=== PATIENT | female | born 1945 | race Caucasian/White ===

== ENCOUNTER 2020-01-05 01:15 | Outpatient (CLI) | payer MEDICARE, SELFPAY ==
[2020-01-05 20:03] LABS: SARS-CoV-2 RNA PCR Negative
== END 2020-01-05 01:16 | disposition home or self-care (01) ==
LOC: ANHCOVIDDT 01:16
PROVIDERS: PCP Family Medicine; Visit Provider Obstetrics & Gynecology
DX: Z01.812 Encounter for preprocedural laboratory examination (principal); Z11.59 Encounter for screening for other viral diseases
CPT/HCPCS: 87635; 93005; C9803; U0003

== ENCOUNTER 2020-01-05 09:23 | Outpatient (CLI) | payer MEDICARE, SELFPAY ==
--- NOTE | 2020-01-05 13:30 | ECG_ITS ---
Measurements Intervals [place] Rate: 74 P: 34 [place]: 142 QRS: -1 QRSD: 85 T: 29 QT: 359 QTc: 400 Interpretive Statements SINUS RHYTHM INFERIOR INFARCT, AGE INDETERMINATE BORDERLINE ST-T WAVE ABNORMALITY- ANT/LAT LEADS BASELINE ARTIFACT- I, II, AVR ABNORMAL ECG Electronically Signed On 01-05-2020 15:08:39 CDT by Emmanuel Tapia D.O.
== END 2020-01-05 09:24 ==
LOC: ANHSURGERY 01-30 09:23
PROVIDERS: PCP Family Medicine; Visit Provider Obstetrics & Gynecology
DX: Z01.810 Encounter for preprocedural cardiovascular examination (principal); I10 Essential (primary) hypertension; R94.31 Abnormal electrocardiogram [ECG] [EKG]
CPT/HCPCS: 93005

== ENCOUNTER 2020-01-07 01:58 | Day surgery (SDC) | payer MEDICARE, SELFPAY ==
[2020-01-05 10:07] VITALS: BMI 24.1
[2020-01-07 11:25] VITALS: BP 149/63; PULSE 65; RESP 20; TEMP 36.4; O2SAT 98
[2020-01-07] MEDS: LACTATED RINGERS 1,000 ML 30 ML IV CONT (11:50)
[2020-01-07 12:02] LABS: Hematocrit 38.6 % (37.0-47.0); Hemoglobin 12.9 g/dL (12.0-15.0)
--- NOTE | 2020-01-07 12:07 | PM.IMHP ---
H&P: HPI History of Present Illness Chief complaint: Post Menopausal Bleeding Narrative: 74 y/o with small amounts of vaginal bleeding. Ultrasound exam showed an endometrial complex measuring 9mm. I have recommended evaluation of endometrial cavity with hysteroscopy D&C. Review of Systems Review of Systems: All systems reviewed & are unremarkable except as noted in HPI and below PMFSH Past Medical History Medical History (Updated 01/07/20 @ 12:12 by Cj Alvarenga MD) Abnormal finding on urinalysis Degenerative joint disease of knee Hematuria History of breast cancer Osteopenia Urinary frequency Surgical History Surgical History History of cholecystectomy History of right mastectomy Family History Family History Mother Hypertension Family history of cardiovascular disease Family history of malignant neoplasm of breast in first degree relative Other Family history of arthritis Family history of malignant neoplasm Social History Social History Smoking status: Never smoker Alcohol intake: current Alcohol use details: WINE Substance use: never Living arrangements: alone Spiritual care concerns: No Meds Home Medications and Allergies Home Medications Medication Instructions Recorded Confirmed Type loratadine 10 mg tablet 10 mg PO PRN PRN 07/14/19 01/05/20 History omeprazole magnesium 20 mg 20 mg PO DAILY 07/14/19 01/05/20 History tablet,delayed release vitamins A,C,T-hdsq-nnkfnj 7,160 1 tablet PO BID 07/14/19 01/05/20 History unit-113 mg-100 unit tablet levothyroxine 75 mcg tablet 75 mcg PO DAILY #90 tablet 09/19/19 01/05/20 Rx calcium carbonate 500 mg calcium 500 mg PO DAILY #30 tablet 12/09/19 01/05/20 Rx (1,250 mg) tablet cholecalciferol (vitamin D3) 25 25 mcg PO DAILY #30 tablet 12/09/19 01/05/20 Rx mcg (1,000 unit) tablet losartan 25 mg tablet 25 mg PO DAILY #90 tablet 01/01/20 01/05/20 Rx Allergies Allergy/AdvReac Type Severity Reaction Status Date / Time No Known Allergies Allergy Unverified 01/05/20 09:49 Exam Const: Orientation/consciousness: patient oriented x3 Other: Well-developed, well-nourished female in no acute distress. Neck: Thyroid: thyroid normal Lymphatic: no lymphadenopathy noted (in neck, axilla or inguinal nodes) Resp: Effort & Inspection: normal respiratory effort Auscultation: clear to auscultation bilaterally Cardio: Rate: regular rate Rhythm: regular rhythm Heart sounds: S1 normal heart sound present and S2 normal heart sound present GI: Other: ABD: Soft, nontender, nondistended. No guarding or rebound tenderness. No hepatosplenomegaly. : General: Yes no CVA tenderness Other: External genitalia: normal female hair distribution, without lesion. Urethral meatus: no lesion, non prolapsed. Bladder: no mass, nontender Vagina: third degree cystocele, first degree uterine prolapse, first degree rectocele Cervix: no lesion or discharge. Uterus: small, anteverted, freely mobile, nontender Adnexa: no mass or tenderness. Anus/perineum: no lesions, nontender Back/Spine/Pelvis: Back: no CVA tenderness Skin: General skin exam: normal color and no rashes or lesions noted Neuro: General: patient oriented x3 Extrem: Other: Extremities: nontender with no edema Psych: Mental Status: mental status grossly normal Affect: normal affect H&P: Results Labs Labs: Short CBC 01/07/20 Range/Units 11:45 Hgb 12.9 (12.0-15.0) g/dL Hct 38.6 (37.0-47.0) % Assessment and Plan Assessment and plan (1) Postmenopausal bleeding: Code(s): N95.0 - Postmenopausal bleeding Status: Acute Assessment and Plan: I offered hysteroscopy with D&C. She understands there are temporary methods of contraception available to her. She understan
--- NOTE | 2020-01-07 12:23 | P.PNAN_ITS ---
Anes - Initial Pre Proc Eval Procedure: Operation Date: 01/07/20 13:00 Proposed Procedures p Hysteroscopy Dilation and Curettage - Cj Alvarenga MD Date/Time: 01/07/20 12:23 Surgeon: Cj Alvarenga MD Pre Op Diagnosis: Post Menopausal Bleeding Patient Data Age: 74 Gender: F Height: 5 ft 7 in Weight: 69.95 kg Allergies Allergy/AdvReac Type Severity Reaction Status Date / Time No Known Allergies Allergy Unverified 01/05/20 09:49 Home Medications Medication Instructions Recorded Confirmed Type loratadine 10 mg tablet 10 mg PO PRN PRN 07/14/19 01/05/20 History omeprazole magnesium 20 mg 20 mg PO DAILY 07/14/19 01/05/20 History tablet,delayed release vitamins A,C,J-pdbg-zronlp 7,160 1 tablet PO BID 07/14/19 01/05/20 History unit-113 mg-100 unit tablet levothyroxine 75 mcg tablet 75 mcg PO DAILY #90 tablet 09/19/19 01/05/20 Rx calcium carbonate 500 mg calcium 500 mg PO DAILY #30 tablet 12/09/19 01/05/20 Rx (1,250 mg) tablet cholecalciferol (vitamin D3) 25 25 mcg PO DAILY #30 tablet 12/09/19 01/05/20 Rx mcg (1,000 unit) tablet losartan 25 mg tablet 25 mg PO DAILY #90 tablet 01/01/20 01/05/20 Rx Laboratory Tests 01/07/20 11:45 Hgb 12.9 g/dL g/dL (12.0-15.0) Hct 38.6 % % (37.0-47.0) Patient hx anesthesia problems: none Family hx anesthesia problems: none PMFSH Past Medical History Medical History Abnormal finding on urinalysis Degenerative joint disease of knee Hematuria History of breast cancer Osteopenia Urinary frequency Surgical History Surgical History History of cholecystectomy History of right mastectomy Family History Family History Mother Hypertension Family history of cardiovascular disease Family history of malignant neoplasm of breast in first degree relative Other Family history of arthritis Family history of malignant neoplasm Social History Social History Smoking status: Never smoker Alcohol intake: current Alcohol use details: WINE Substance use: never Living arrangements: alone Spiritual care concerns: No Anes - Eval Final PreProcedure Day of Procedure 01/07/20 12:23 Patient weight: normal Heart: regular rate and rhythm Lungs: clear to auscultation Airway: Mallampati scale class II Neurological: alert and oriented Last oral intake: >/= 8 hours ASA classification: II Emergent: no Anesthetic plan: proceed Anesthesia type and monitoring: general GIVS and standard monitoring Informed Consent: The patient's anesthetic plan and its attendant risks and be nefits were discussed with the patient/family/POA. Questions were solicited and answers provided to the satisfaction of the patient/family/POA.
--- NOTE | 2020-01-07 13:16 | SUR.OPER ---
50ml ns in, 50ml ns out. aware
[2020-01-07] MEDS: KETOROLAC 30 MG/ML VIAL (*BKC) 15 MG IV PUSH (13:18)
--- NOTE | 2020-01-07 13:23 | PM.PROC ---
Procedure Note - Detailed Date of procedure: 01/07/20 Pre-op diagnosis: Post Menopausal Bleeding Post-op diagnosis: same Procedure performed: Hysteroscopy Dilation and sharp curettage Description of procedure: The patient was taken to the operating room where she was prepared and draped in the usual sterile fashion in the dorsal lithotomy position. The bladder was drained with a red rubber catheter. A sterile speculum was placed into the vagina. The anterior lip of the cervix was grasped with single-tooth tenaculum. Ten mL of 1% lidocaine was administered in a paracervical block. The cervix was then gently dilated using Hegar dilators until an 8 mm dilator could be passed. Hysteroscopy was performed using sterile saline as a distention medium. Findings are as noted above. Sharp curettage was then performed, and endometrial curettings were collected on a Telfa pad and passed off to be sent to pathology. Hemostasis was excellent. A silver nitrate stick was touched to the granulation tissue in the posterior fornix of the vagina. Sponge, lap, needle and instrument counts were correct. The patient was awakened and taken to the recovery room in stable condition. I was present and scrubbed through the entire procedure. Implants: None Anesthesia: MAC and local (1% lidocaine paracervical block) Surgeon: Cj Alvarenga MD Estimated blood loss (mL): 5 Drains: No Packing: No Pathology: yes (Endometrial curettings) Complications: None Condition: stable Disposition: PACU Findings: Granulation tissue on the epithelium of the posterior fornix of the vagina. The vagina is otherwise atrophic. A third degree cystocele, first degree rectocele, and first degree uterine prolapse are noted. The endometrial cavity was unremarkable. Both tubal ostia were seen.
[2020-01-07 13:27] VITALS: BP 106/49; PULSE 59; RESP 15; O2SAT 94
--- NOTE | 2020-01-07 13:42 | SUR.PHASEII ---
[id number] dr parsons at bedside to update pt on surgery
[2020-01-07 13:50] VITALS: BP 135/53; PULSE 51; RESP 14
[2020-01-07 14:05] VITALS: BP 120/50; PULSE 52; RESP 14
== END 2020-01-07 14:15 | disposition home or self-care (01) ==
PROVIDERS: PCP Family Medicine; Visit Provider Obstetrics & Gynecology
PROC: 0U5B8ZZ Destruction of Endometrium, Via Natural or Artificial Opening Endoscopic (ICD-10-PCS; CPT 58563; principal; 2020-01-07 13:00)
DX: N95.0 Postmenopausal bleeding (principal); N85.8 Other specified noninflammatory disorders of uterus; Z85.3 Personal history of malignant neoplasm of breast
CPT/HCPCS: 58558; 36415; 85014; 85018; 88305; A9270; J1100; J1885; J2405; J2704; J3010; J7120

== ENCOUNTER → 2020-05-13 07:20 | Outpatient (CLI) | payer MEDICARE, SELFPAY ==
--- NOTE | ~2020-05-13 | MM_ITS ---
EXAMINATION: MM screening aidee LT w collin HISTORY: Screening left mammogram, history of right mastectomy TECHNIQUE: Craniocaudal and mediolateral oblique 3-D tomosynthesis images were obtained and synthetic 2-D images were generated. CAD analysis was submitted and interpreted. COMPARISON: 03/07/2019 BREAST PARENCHYMAL COMPOSITION: There are scattered areas of fibroglandular density. FINDINGS: Scattered benign-appearing calcifications are present. There is possible architectural dist ortion in the anterior third of the slightly outer breast. IMPRESSION: 1. Possible architectural distortion. 2. Additional mammographic views and possible breast ultrasound are recommended. BI-RADS Category 0: Incomplete: Needs additional imaging evaluation. Reviewed, dictated and finalized at location A. 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 Possible architectural distortion. 2. Additional mammographic views and possible breast ultrasound are recommended . BI-RADS Category 0: Incomplete: Needs additional imaging evaluation.
== END ==
PROVIDERS: PCP Family Medicine; Visit Provider Obstetrics & Gynecology
DX: Z12.31 Encounter for screening mammogram for malignant neoplasm of breast (principal); R92.8 Other abnormal and inconclusive findings on diagnostic imaging of breast
CPT/HCPCS: 77063; 77067

== ENCOUNTER → 2020-06-03 07:51 | Outpatient (CLI) | payer MEDICARE, SELFPAY ==
--- NOTE | ~2020-06-03 | MMUS_ITS ---
EXAMINATION: MM diagnostic mammo unilat LT, US breast LT limited HISTORY: Possible architectural distortion in anterior third of slightly outer left breast on 020 screening mammogram TECHNIQUE: Additional 3-D tomosynthesis images of the left breast were performed and synthetic 2-D im ages were generated. CAD analysis was submitted and interpreted. High resolution upper outer and lowe r outer left breast ultrasound was performed. COMPARISON: Serial mammogram examinations from 05/13/2020 through 02/05/2017 FINDINGS: MAMMOGRAPHIC FINDINGS: There is chronic architectural distortion, present on serial examinations dating back to 02/05/2017, wi thout definite discrete interval mass lesion. There is a nearby scar observed by the technologist. Scattered benign calcifications. ULTRASOUND: There is heterogeneous tissue in the 1:00 area but no mass lesion is detected. IMPRESSION: 1. Stable architectural distortion in the outer left breast likely related to previous biopsy or surg ical intervention, not significantly changed over serial examinations dating back to 02/05/2017 2. Routine annual mammographic screening is recommended. BI-RADS Category 2: Benign finding(s). Reviewed, dictated and finalized at location A. PINNER IMPRESSION: 1. Stable architectural distortion in the outer left breast likely related to p revious biopsy or surgical intervention, not significantly changed over serial examinations dating back to 02/05/2017 2. Routine annual mammographic screening is recommended. BI-RADS Category 2: Benign finding(s).
== END ==
PROVIDERS: PCP Family Medicine; Visit Provider Obstetrics & Gynecology
DX: R92.8 Other abnormal and inconclusive findings on diagnostic imaging of breast (principal)
CPT/HCPCS: 76642; 77065

== ENCOUNTER → 2021-07-19 12:12 | Outpatient (CLI) | payer MEDICARE, SELFPAY ==
--- NOTE | ~2021-07-19 | MM_ITS ---
EXAMINATION: MM screening aidee LT w collin HISTORY: Screening TECHNIQUE: Craniocaudal and mediolateral oblique 3-D tomosynthesis images were obtained and synthetic 2-D images were generated. CAD analysis was submitted and interpreted. COMPARISON: Comparison to multiple prior studies sequentially, with oldest reviewed study dated 12/2016. BREAST PARENCHYMAL COMPOSITION: There are scattered areas of fibroglandular density. FINDINGS: There is no evidence of suspicious mass, calcification, or architectural distortion to sugg est malignancy in either breast. There has been no suspicious interval change. IMPRESSION: 1. No mammographic evidence of malignancy. 2. Recommend routine screening mammography in one year. BI-RADS Category 1: Negative Reviewed, dictated and finalized at location A. 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
== END ==
PROVIDERS: PCP Obstetrics & Gynecology; Visit Provider Obstetrics & Gynecology
DX: Z12.31 Encounter for screening mammogram for malignant neoplasm of breast (principal)
CPT/HCPCS: 77063; 77067

== ENCOUNTER → 2021-11-08 10:59 | Outpatient (CLI) | payer MEDICARE, SELFPAY ==
--- NOTE | ~2021-11-08 | DEXA_ITS ---
Bone Density Report Name: RUSSELL HERRMANN Age: 75 Sex: Female Ethnicity: White Date of : 1945 Indication: postmenopausal; screening for osteoporosis; parental hip fracture; height loss; Referring Provider: FIDE RODRIGEZ Study: Bone densitometry was performed. Exam Date: November 08, 2021 Accession number: [id number] Bone Density: Region BMD T-score Z-score Classification AP Spine (L1-L4) 0.958 -0.8 1.7 Normal Femoral Neck (Left) 0.679 -1.5 0.6 Osteopenia Total Hip (Left) 0.820 -1.0 0.9 Normal Femoral Neck (Right) 0.817 -0.3 1.9 Normal Total Hip (Right) 0.893 -0.4 1.5 Normal Total Hip Mean 0.857 -0.7 1.2 Normal World Health Organization criteria for BMD impression classify patients as: Normal (T-score at or above -1.0), Osteopenia (T-score between -1.0 and -2.5), or Osteoporosis (T-score at or below -2.5). 10-year Fracture Risk(1): Major Osteoporotic Fracture 21% Hip Fracture 11% Reported Risk Factors: [place] (), Neck BMD=0.679, BMI=27.0, parental fracture (1) FRAX(R) Version 3.08. Fracture probability calculated for an untreated patient. Fracture probability may be lower if the patient has received treatment. Clinical Information Provided by Patient: Parent has had a hip fracture Has used the following medications: Vitamin D, Calcium Patient maximum height was 67.52 Menopause Age: 46 Drinks caffeinated beverages Onset of menses at age 11 Number of children 1 Impression: The patient has low bone mass, based on the Left Femoral Neck T-score. The patient has an estimated ten-year risk of hip fracture of 11% and an estimated ten-year risk of major fracture of 21%, based on the WHO FRAX algorithm. The patient has risk factors, including: parental hip fracture. Discussion: BONE DENSITY IS LOW AT ONE OR MORE SKELETAL SITES. THE PATIENT'S BMD AND CLINICAL RISK FACTORS CONTRIBUTE TO THIS PATIENT'S HIGH RISK OF FRACTURE. This patient's lowest T-score is low at one or more skeletal sites. It meets the World Health Organization's (WHO) criteria for ?low bone mass? (T-score between -1.0 and -2.5). The patient's 10-year risk of hip fracture and 10 year risk of a major osteoporotic fracture as calculated by FRAX exceeds the threshold where pharmacological therapy is recommended by the National Osteoporosis Foundation (NOF). However, all treatment decisions require clinical judgment and consideration of individual patient factors, including patient preferences, comorbidities, previous drug use, risk factors not captured in the FRAX model (e.g., frailty, falls, vitamin D deficiency, increased bone turnover, interval significant decline in bone density) and possible under or overestimation of fracture risk by FRAX. The patient should follow a healthful lifestyle (good nutrition with adequate calciu
== END ==
PROVIDERS: PCP Family Medicine; Visit Provider Physician Assistant
DX: Z78.0 Asymptomatic menopausal state (principal); M85.852 Other specified disorders of bone density and structure, left thigh
CPT/HCPCS: 77080

== ENCOUNTER 2022-01-07 19:08 | Emergency (ER) | payer MEDICARE, SELFPAY ==
--- NOTE | ~2022-01-07 | XR_ITS ---
This report was recreated 01/20/2022. Original report was signed by Jenaro House M.D. on 01/07/2022 19:35 CDT EXAMINATION: XR chest 2V 01/07/2022 19:32 INDICATION: Cough PROCEDURE: 2 view chest COMPARISON: No prior studies for comparison. FINDINGS: The lungs are clear. The cardiomediastinal silhouette is within normal limits. There are no pleural effusions. There is no pneumothorax suspected. The lungs are hyperinflated which is consistent with, but not diagnostic of chronic obstructive pulmonary disease. There is atherosclerosis. There are cholecystectomy clips. IMPRESSION: 1: NO ACUTE CARDIOPULMONARY DISEASE. Reviewed, dictated and finalized at location A. Electronically signed Dictated By: Jenaro House MD 01/07/22 1934 Signed By: 01/20/22 1520 ASHANTI
--- NOTE | ~2022-01-07 | XR_ITS ---
This report was recreated 01/20/2022. Original report was signed by Jenaro House M.D. on 01/07/2022 19:35 CDT EXAMINATION: XR chest 2V 01/07/2022 19:32 INDICATION: Cough PROCEDURE: 2 view chest COMPARISON: No prior studies for comparison. FINDINGS: The lungs are clear. The cardiomediastinal silhouette is within normal limits. There are no pleural effusions. There is no pneumothorax suspected. The lungs are hyperinflated which is consistent with, but not diagnostic of chronic obstructive pulmonary disease. There is atherosclerosis. There are cholecystectomy clips. IMPRESSION: 1: NO ACUTE CARDIOPULMONARY DISEASE. Reviewed, dictated and finalized at location A. Electronically signed MTDD
--- NOTE | 2022-01-07 19:14 | ED.URI ---
HPI - URI/Sore Throat General Chief Complaint: Upper Respiratory Infection Stated Complaint: cough,congestion Time Seen by Provider: 01/07/22 19:50 Source: patient and RN notes reviewed Mode of arrival: ambulatory Limitations: no limitations History of Present Illness HPI Narrative: 76-year-old female presents with concern for ongoing cough. She reports she has been coughing since November, she had an upper respiratory infection which she was treated by her primary care provider with a steroid pack and cephalexin. Reports she finished those medications and is also been taking other medications recommended by her provider including Zyrtec and Flonase. Reports most of her symptoms have resolved however she continues to have a daily cough, mainly in the morning when she coughs up clear phlegm. She reports today she had a longer coughing spell in the morning and had a prolonged coughing spell this afternoon when she woke up from a nap. She reports that since then she has had an irritated cough. She denies fever, body aches, chills, sweats. She reports some postnasal drainage, denies any other upper respiratory symptoms she denies shortness of breath, however she reports feeling like she cannot take a full deep breath. MD elicited complaint: cough Related Data Home Medications Medication Instructions Recorded Confirmed vitamins A,C,I-bbjq-vnspgl 2,148 1 tablet PO BID 07/14/19 01/07/22 mcg-113 mg-45 mg-17.4 mg tablet (PreserVision AREDS) Allergies Allergy/AdvReac Type Severity Reaction Status Date / Time No Known Allergies Allergy Verified 01/07/22 19:21 Review of Systems Review of Systems: CONSTITUTIONAL: Denies malaise, chills, sweats, or fever. EYES: Denies visual changes, redness, or discharge. ENT: Denies rhinorrhea, congestion, sinus pain, otalgia and sore throat.. Postnasal drainage CARDIOVASCULAR: Denies chest pain, palpitations, or edema. RESPIRATORY: Reports cough. Denies dyspnea. GASTROINTESTINAL: Denies abdominal pain, nausea, vomiting, diarrhea SKIN: Denies rash or itching. MUSCULOSKELETAL: Denies myalgia. NEUROLOGIC: Denies headache. 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 Dizziness Essential hypertension Fibroma of right ovary Hematuria History of breast cancer Hyperlipidemia Hyperthyroidism Osteopenia Postmenopausal bleeding Primary osteoarthritis of left knee Urinary frequency Vaginal prolapse Weight gain Surgical History Surgical History History of cholecystectomy History of right mastectomy Family History Family History Mother Hypertension Family history of cardiovascular disease Family history of malignant neoplasm of breast in first degree relative Other Family history of arthritis Family history of malignant neoplasm Heart disease High cholesterol Social History Social History Smoking status: Never smoker Second hand tobacco smoke exposure: No Alcohol intake: current Drinks per week: 1 Alcohol use details: WINE Substance use: never Substance use type: does not use Gender identity (if verbalized by the patient): Female Sexual Orientation (if Verbalized by the Patient): Straight or Heterosexual Spiritual care concerns: No Comments At time of signature, agree with nursing past medical, surgical, social and family history. There is no relevant family history pertinent to the presenting complaint Exam Narrative: GENERAL: Well-appearing, and in no acute distress. HEAD: N
[2022-01-07 19:20] VITALS: BP 155/83; PULSE 97; RESP 16; TEMP 36.4; O2SAT 99
[2022-01-07 19:23] VITALS: BP 155/83; PULSE 97; RESP 16; TEMP 36.4; O2SAT 99
== END 2022-01-07 20:08 | disposition home or self-care (01) ==
PROVIDERS: Emergency Provider Nurse Practitioner; PCP Family Medicine
DX: R05.9 Cough, unspecified (principal); R91.8 Other nonspecific abnormal finding of lung field; E03.9 Hypothyroidism, unspecified; M19.90 Unspecified osteoarthritis, unspecified site; K21.9 Gastro-esophageal reflux disease without esophagitis; I10 Essential (primary) hypertension; Z85.3 Personal history of malignant neoplasm of breast; E78.5 Hyperlipidemia, unspecified; E05.90 Thyrotoxicosis, unspecified without thyrotoxic crisis or storm; M17.12 Unilateral primary osteoarthritis, left knee; Z90.11 Acquired absence of right breast and nipple
CPT/HCPCS: 71046; 99213; G0463

== ENCOUNTER → 2022-09-27 15:41 | Outpatient (CLI) | payer MEDICARE, SELFPAY ==
--- NOTE | ~2022-09-27 | MM_ITS ---
EXAMINATION: MM screening aidee LT w collin HISTORY: Screening TECHNIQUE: Craniocaudal and mediolateral oblique 3-D tomosynthesis images were obtained and synthetic 2-D images were generated. CAD analysis was submitted and interpreted. COMPARISON: Comparison to multiple prior studies sequentially, with oldest reviewed study dated 12/2026 2. BREAST PARENCHYMAL COMPOSITION: FINDINGS: There is no evidence of suspicious mass, calcification, or architectural distortion to sugg est malignancy in the breast. There has been no suspicious interval change. IMPRESSION: 1. No mammographic evidence of malignancy. 2. Recommend routine screening mammography in one year. BI-RADS Category 1: Negative Reviewed, dictated and finalized at location A.
== END ==
PROVIDERS: PCP Family Medicine; Visit Provider Obstetrics & Gynecology
DX: Z12.31 Encounter for screening mammogram for malignant neoplasm of breast (principal)
CPT/HCPCS: 77063; 77067

== ENCOUNTER 2022-11-14 13:44 | Emergency (ER) | payer MEDICARE, SELFPAY ==
[2022-11-14] VITALS (25 sets, daily range): BP systolic 133–210; BP diastolic 78–105; PULSE 67–107; RESP 15–23; TEMP 36.6–36.8; O2SAT 94–99
--- NOTE | ~2022-11-14 | XR_ITS ---
EXAMINATION: XR chest 1V portable DATE: 11/14/2022 15:47 INDICATION: Syncope. TECHNIQUE: A single frontal view of the chest was obtained. COMPARISON: Chest 2 views 01/07/2022 FINDINGS: There is mild atelectasis at left lung base. No pleural effusion or pneumothorax. The heart size is normal. IMPRESSION: 1. Mild atelectasis at left lung base. Reviewed, dictated and finalized at location A.
--- NOTE | 2022-11-14 13:51 | ECG_ITS ---
Measurements Intervals [place] Rate: 112 P: 52 [place]: 183 QRS: -14 QRSD: 67 T: 99 QT: 315 QTc: 431 Interpretive Statements SINUS TACHYCARDIA POSSIBLE LEFT ATRIAL ENLARGEMENT LOW QRS VOLTAGE IN PRECORDIAL LEADS CONSIDER ANTERIOR INFARCT, AGE INDETERMINATE INFERIOR INFARCT, AGE INDETERMINATE ST-T WAVE ABNORMALITY IN HIGH LATERAL LEADS- CONSIDER ISCHEMIA BASELINE ARTIFACT- V1 ABNORMAL ECG COMPARED TO ECG 01/05/2020 14:00:17 SINUS TACHYCARDIA NOW PRESENT Electronically Signed On 11-14-2022 18:24:38 CDT by Emmanuel Tapia D.O.
[2022-11-14 14:28] LABS: Basophils Percent Auto 0.6 % (0.2-1.2); Eosinophils Absolute Auto 0.1 K/mm3 (0-0.3); Eosinophils Percent Auto 1.1 % (0-4.4); Hematocrit 45.3 % (37.0-47.0); Hemoglobin 15.3 g/dL (12.0-15.0); Immature Granulocyte Absolute 0.02 K/mm3 (0.00-0.031); Immature Granulocyte Percent A 0.3 % (0-0.5); Lymphocytes Percent Auto 38.1 % (18.3-44.2); Mean Corpuscular HGB Conc 33.8 g/dl (32-36); Mean Corpuscular Hemoglobin 32.4 pg (26-34); Mean Platelet Volume 10.8 fl (7.4-10.4); Monocytes Absolute Auto 0.5 K/mm3 (0.1-0.6); Monocytes Percent Auto 7.9 % (2.6-8.5); Neutrophils Absolute Auto 3.4 K/mm3 (1.3-6.7); Platelet Count Result 316 k/mm3 (150-375); Red Blood Count 4.72 M/mm3 (4.2-5.4); Red Cell Distribution Width 12.4 % (11.5-14.5); White Blood Count 6.6 K/mm3 (4.5-10.0)
[2022-11-14 14:40] LABS: Alanine Aminotransferase 32 U/L (6-35); Albumin Level 4.4 g/dL (3.5-5.1); Alkaline Phosphatase 63 U/L (38-126); Anion Gap 9 mmol/L (8-16); Aspartate Amino Transferase 36 U/L (14-36); Bilirubin,Total 0.5 mg/dL (0.2-1.3); Blood Urea Nitrogen 13 mg/dL (7-17); Calcium 10.1 mg/dL (8.4-10.2); Carbon Dioxide 29 mmol/L (22-30); Chloride 101 mmol/L (98-107); Estimated CRCL calculation 52 ml/min; Estimated Glomerular Filt Rate > 60; Glucose 131 mg/dL (65-110); Potassium 3.7 mmol/L (3.4-5.0); Sodium 139 mmol/L (137-145)
[2022-11-14 14:42] LABS: INR 0.9; Prothrombin Time 12.5 Seconds (11.1-14.7)
--- NOTE | 2022-11-14 15:33 | ED.SYNCOPE ---
HPI - Syncope General Chief Complaint: Dizziness Stated Complaint: dizziness since yesterday morning Time Seen by Provider: 11/14/22 14:46 History of Present Illness HPI narrative: Patient is a 76-year-old female with a history of hypothyroidism, hypertension presenting with lightheadedness. Patient states that over the weekend she had an episode of lightheadedness with standing that required her to sit back down because she was afraid she was going to pass out. States that she was doing better until this morning when she was walking around her garden. She again started to feel lightheaded and had to go in to sit down. States that she continued to feel somewhat lightheaded so her family brought her in for evaluation. Currently, patient states that she feels better. Denies chest pain or shortness of breath. No numbness or weakness. No nausea or vomiting, diarrhea, leg swelling. Denies vision changes, headache, palpitations. 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 Dizziness Essential hypertension Fibroma of right ovary Hematuria History of breast cancer Hyperlipidemia Hyperthyroidism Osteopenia Postmenopausal bleeding Primary osteoarthritis of left knee Urinary frequency Vaginal prolapse Weight gain Surgical History Surgical History History of cholecystectomy History of right mastectomy Family History Family History Mother Hypertension Family history of cardiovascular disease Family history of malignant neoplasm of breast in first degree relative Other Family history of arthritis Family history of malignant neoplasm Heart disease High cholesterol Social History Social History Smoking status: Never smoker Second hand tobacco smoke exposure: No Alcohol intake: current Drinks per week: 1 Alcohol use details: WINE Substance use: never Substance use type: does not use Living arrangements: alone Occupation/Education: retired Gender identity (if verbalized by the patient): Female Sexual Orientation (if Verbalized by the Patient): Straight or Heterosexual Spiritual care concerns: No Exam Narrative: GENERAL: Well-appearing, well-nourished, and in no acute distress. HEAD: Normocephalic, atraumatic. EYES: PERRLA and EOMI. ENT: Nares clear, no rhinorrhea or epistaxis. Mucous membranes dry NECK: Supple. CHEST: Clear to auscultation. No respiratory distress. HEART: Regular rate and rhythm. No murmur heard. Normal peripheral pulses. ABDOMEN: Soft, nontender, nondistended EXTREMITIES: Normal range of motion. No edema. SKIN: Warm, dry, no rash. NEURO: No focal deficits. Alert and oriented x3. PSYCH: Normal mood and affect. Course Vital Signs Vital signs: Vital Signs Temperature 97.8 F 11/14/22 13:46 Pulse Rate 94 11/14/22 13:46 Respiratory Rate 18 11/14/22 13:46 Blood Pressure 143/84 H 11/14/22 13:46 Pulse Oximetry 99 11/14/22 13:46 Oxygen Delivery Room Air 11/14/22 13:46 Temperature 98.2 F 11/14/22 17:30 Pulse Rate 69 11/14/22 18:15 Respiratory Rate 20 11/14/22 18:15 Blood Pressure 182/78 H 11/14
[2022-11-14] MEDS: SODIUM CHLORIDE 0.9% IV 1,000 ML 999 ML IV CONT (16:04)
[2022-11-14 16:30] LABS: Troponin I < 0.012 ng/mL (0.000-0.034)
[2022-11-14 17:44] LABS: Troponin I < 0.012 ng/mL (0.000-0.034)
== END 2022-11-14 18:25 | disposition home or self-care (01) ==
PROVIDERS: Emergency Medicine; Emergency Provider Emergency Medicine; PCP Family Medicine
DX: I95.1 Orthostatic hypotension (principal); I10 Essential (primary) hypertension; E03.9 Hypothyroidism, unspecified; K21.9 Gastro-esophageal reflux disease without esophagitis; M85.80 Other specified disorders of bone density and structure, unspecified site; M17.12 Unilateral primary osteoarthritis, left knee; Z85.3 Personal history of malignant neoplasm of breast; Z90.11 Acquired absence of right breast and nipple; Z90.49 Acquired absence of other specified parts of digestive tract; R00.0 Tachycardia, unspecified; R94.31 Abnormal electrocardiogram [ECG] [EKG]
CPT/HCPCS: 36415; 71045; 80053; 84484; 85025; 85610; 93005; 99284; J7030

== ENCOUNTER 2023-10-16 13:10 | Outpatient (CLI) | payer MEDICARE, SELFPAY ==
--- NOTE | ~2023-10-16 | MM_ITS ---
EXAMINATION: MM screening aidee LT w collin HISTORY: Screening TECHNIQUE: Craniocaudal and mediolateral oblique 3-D tomosynthesis images were obtained and synthetic 2-D images were generated. CAD analysis was submitted and interpreted. COMPARISON: Comparison to multiple prior studies sequentially, with oldest reviewed study dated 07/19. BREAST PARENCHYMAL COMPOSITION: Not dense: There are scattered areas of fibroglandular density. FINDINGS: There is no evidence of suspicious mass, calcification, or architectural distortion to sugg est malignancy in either breast. There has been no suspicious interval change. IMPRESSION: 1. No mammographic evidence of malignancy. 2. Recommend routine screening mammography in one year. BI-RADS Category 1: Negative Reviewed, dictated and finalized at location B.
== END 2023-10-16 13:11 ==
LOC: MICIMG 13:11
PROVIDERS: PCP Family Medicine; Visit Provider Obstetrics & Gynecology
DX: Z12.31 Encounter for screening mammogram for malignant neoplasm of breast (principal)
CPT/HCPCS: 77063; 77067

== ENCOUNTER 2024-02-08 14:20 | Outpatient (CLI) | payer MEDICARE, SELFPAY ==
--- NOTE | ~2024-02-08 | DEXA_ITS ---
Bone Density Report Name: RUSSELL HERRMANN Age: 78 Sex: Female Ethnicity: White Date of : 1945 Indication: postmenopausal; screening for osteoporosis; parental hip fracture; height loss; history of glucocorticoids; cancer; secondary osteoporosis; Referring Provider: YESENIA ACHARYA Study: Bone densitometry was performed. Exam Date: February 08, 2024 Accession number: [id number] Bone Density: Region BMD T-score Z-score Classification AP Spine(L1-L4) 0.934 -1.0 1.6 Normal Femoral Neck (Left) 0.685 -1.5 0.8 Osteopenia Total Hip (Left) 0.812 -1.1 0.9 Osteopenia Femoral Neck (Right) 0.790 -0.5 1.7 Normal Total Hip (Right) 0.908 -0.3 1.7 Normal Total Hip Mean 0.860 -0.7 1.3 Normal World Health Organization criteria for BMD impression classify patients as: Normal (T-score at or above -1.0), Osteopenia (T-score between -1.0 and -2.5), or Osteoporosis (T-score at or below -2.5). 10-year Fracture Risk(1): Major Osteoporotic Fracture 32% Hip Fracture 19% Reported Risk Factors: [place] (), Neck BMD=0.685, BMI=28.7, parental fracture, glucocorticoids, secondary osteoporosis (1) FRAX(R) Version 3.08. Fracture probability calculated for an untreated patient. Fracture probability may be lower if the patient has received treatment. Clinical Information Provided by Patient: Parent has had a hip fracture Has taken Glucocorticoids Has secondary osteoporosis Has used the following medications: Calcium Has the following medical conditions: Cancer Patient maximum height was 67 Menopause Age: 49 No regular weight bearing exercise Drinks caffeinated beverages Onset of menses at age 11 Number of children 1 Impression: The patient has low bone mass, based on the Left Femoral Neck T-score. The patient has an estimated ten-year risk of hip fracture of 19% and an estimated ten-year risk of major fracture of 32%, based on the WHO FRAX algorithm. The patient has risk factors, including: parental hip fracture, history of glucocorticoid therapy. Discussion: BONE DENSITY IS LOW AT ONE OR MORE SKELETAL SITES. THE PATIENT'S BMD AND CLINICAL RISK FACTORS CONTRIBUTE TO THIS PATIENT'S HIGH RISK OF FRACTURE. This patient's lowest T-score is low at one or more skeletal sites. It meets the World Health Organization's (WHO) criteria for ?low bone mass? (T-score between -1.0 and -2.5). The patient's 10-year risk of hip fracture and 10 year risk of a major osteoporotic fracture as calculated by FRAX exceeds the threshold where pharmacological therapy is recommended by the National Osteoporosis Foundation (NOF). However, all treatment decisions require clinical judgment and consideration of individual patient factors, including patient preferences, comorbidities, previous drug use, risk factors not capture
== END 2024-02-08 14:21 | disposition home or self-care (01) ==
LOC: ANHIMG 14:20
PROVIDERS: PCP Family Medicine; Visit Provider Physician Assistant
DX: M85.852 Other specified disorders of bone density and structure, left thigh (principal); Z78.0 Asymptomatic menopausal state
CPT/HCPCS: 77080

== ENCOUNTER 2024-09-03 08:57 | Outpatient (CLI) | payer MEDICARE, SELFPAY | END 2024-09-03 08:58 | disposition home or self-care (01) | LOC: ANHAUDIO 08:58 | PROVIDERS: PCP Family Medicine; Visit Provider Family Medicine | DX: H90.3 Sensorineural hearing loss, bilateral (principal) | CPT/HCPCS: 92557; 92567 ==

== ENCOUNTER 2024-12-19 13:55 | Outpatient (CLI) | payer MEDICARE, SELFPAY ==
--- NOTE | ~2024-12-19 | MM_ITS ---
EXAMINATION: MM screening aidee LT w collin HISTORY: Screening TECHNIQUE: Craniocaudal and mediolateral oblique 3-D tomosynthesis images were obtained and synthetic 2-D images were generated. CAD analysis was submitted and interpreted. COMPARISON: Comparison to multiple prior studies sequentially, with oldest reviewed study dated 11/2018. BREAST PARENCHYMAL COMPOSITION: Not dense: There are scattered areas of fibroglandular density. FINDINGS: There is no evidence of suspicious mass, calcification, or architectural distortion to sugg est malignancy in either breast. There has been no suspicious interval change. IMPRESSION: 1. No mammographic evidence of malignancy. 2. Recommend routine screening mammography in one year. BI-RADS Category 1: Negative Reviewed, dictated and finalized at location A.
== END 2024-12-19 13:56 | disposition home or self-care (01) ==
LOC: MICIMG 13:56
PROVIDERS: PCP Family Medicine; Visit Provider Obstetrics & Gynecology
DX: Z12.31 Encounter for screening mammogram for malignant neoplasm of breast (principal)
CPT/HCPCS: 77063; 77067

== ENCOUNTER 2025-01-14 14:00 | Outpatient (RCR) | payer SELFPAY | END 2025-01-14 23:59 | disposition home or self-care (01) | LOC: ANHAUDIO 14:00 | PROVIDERS: PCP Family Medicine; Visit Provider Family Medicine | DX: Z46.1 Encounter for fitting and adjustment of hearing aid (principal) | CPT/HCPCS: 99199; V5261 ==